=== PATIENT | female | born 1995 | race African-American/Black ===

== ENCOUNTER 2016-10-11 16:57 | Emergency (ER) | payer SELFPAY ==
[~2016-10-11] VITALS: Ht 160 cm; Wt 110.0 kg
[~2016-10-11 16:57] MED LIST: AZIT250T74 PO; CARDECDMS PO
[2016-10-11 17:00] VITALS: BP 168/105; PULSE 128; RESP 16; TEMP 98.1; O2SAT 100
[2016-10-11 17:16] VITALS: PULSE 114; RESP 18; O2SAT 99
--- NOTE | 2016-10-11 17:27 | PD ---
HPI Chief Complaint: Chest Pain Time Seen by Provider: 17:21 Travel History International Travel<30 days: No Contact w/Intl Traveler<30days: No Traveled to known affect area: No History of Present Illness HPI Patient is a 21-year-old female presents emergency Department with 2-3 day history of left-sided chest tightness now radiating down her left arm which is what caused her to come into the emergency department. Patient relates a history of her mother dying of congestive heart failure and she had CABG in her early 40s relates 30s. Patient's mother at 42. Patient states she does not currently have a primary care physician she just moved to town. Denies a history of hormone replacement denies a history of long stasis periods. Denies a history of high blood pressure high cholesterol. She does not smoke. She denies shortness of breath nausea vomiting abdominal pain swelling in her extremities. PFSH Past Medical History Cardiovascular Problems: Yes (htn hx of this but does not take meds for it) Diminished Hearing: No Respiratory: Yes (PNEUMONIA) Tetanus Vaccination: Unknown Influenza Vaccination: No ?: Not LMP: 09/13/16 Past Surgical History Cholecystectomy: Yes Social History Alcohol Use: No Tobacco Use: No Substance Use: No Allergies-Medications (Allergen,Severity, Reaction): Coded Allergies: No Known Allergies (Verified , 10/11/16) Reported Meds & Prescriptions Reported Meds & Active Scripts Active Review of Systems Except as stated in HPI: all other systems reviewed are Neg Physical Exam Narrative GENERAL: Well-developed, morbidly obese in no apparent distress. SKIN: Focused skin assessment warm/dry. HEAD: Atraumatic. Normocephalic. EYES: Pupils equal and round. No scleral icterus. No injection or drainage. ENT: No nasal bleeding or discharge. Mucous membranes pink and moist. NECK: Trachea midline. No JVD. CARDIOVASCULAR: Regular rhythm with tachycardia.. No murmur appreciated. 2+ bilateral equal pulses in all 4 extremities. No edema appreciated. RESPIRATORY: No accessory muscle use. Clear to auscultation. Breath sounds equal bilaterally. GASTROINTESTINAL: Abdomen soft, non-tender, nondistended. Hepatic and splenic margins not palpable. MUSCULOSKELETAL: No obvious deformities. No clubbing. No cyanosis. No edema. NEUROLOGICAL: Awake and alert. No obvious cranial nerve deficits. Motor grossly within normal limits. Normal speech. PSYCHIATRIC: Appropriate mood and affect; insight and judgment normal. Data Data Last Documented VS Vital Signs Date Time Temp Pulse Resp B/P Pulse Ox O2 Delivery O2 Flow Rate FiO2 10/11/16 19:30 90 18 143/87 100 Room Air 10/11/16 17:00 98.1 Orders Electrocardiogram (10/11/16 ) B-Type Natriuretic Peptide (10/11/16 17:21) Ckmb (Isoenzyme) Profile (10/11/16:21) Complete Blood Count With Diff (10/11/16:) Comprehensive Metabolic Panel (10/11/16:21) Magnesium (Mg) (10/11/16:21) Troponin I (10/11/16:21) Chest, Single Ap (10/11/16:21) Ecg Monitoring (10/11/16:21) Bilateral Bp Monitoring (10/11/16:21) Iv Access Insert/Monitor (10/11/16:21) Oximetry (10/11/16:21) Oxygen Administration (10/11/16:21) Aspirin Chew (Aspirin Chew) (10/11/16 17:30) Sodium Chloride 0.9% Flush (Ns Flush) (10/11/16 17:30) Sodium Chlor 0.9% 1000 Ml Inj (Ns 1000 M (10/11/16 17:30) Urinalysis - C+S If Indicated (10/11/16 17:53) Ed Urine Pregnancytest Poc (10/11/16 17:53) Labs Laboratory Tests Test 10/11/16 10/11/16 10/11/16 17:56 18:55 19:43 Urine Color YELLOW Urine Turbidity CLEAR Urine pH 6.5 Urine Specific [place] 1.034 Urine Protein NEG mg/dL Urine Glucose (UA) NEG mg/dL Urine Ketones TRACE mg/dL Urine Occult Blood NEG Urine Nitrite NEG Urine Bilirubin NEG Urine Leukocyte Esterase NEG Urine RBC 0-3 /hpf Urine WBC 0-2 /hpf Urine Squamous Epithelial > 8 /hpf Cells Urine Mucus MOD /lpf Microscopic Urinalysis Comment CULT NOT INDICATED White Blood Count 6.1 TH/MM3 Red Blood Count 4.84 MIL/MM3 Hemoglobin 12.8 GM/DL Hematocrit 37.6 % Mean Corpuscular Volume 77.8 FL Mean Corpuscular Hemoglobin 26.4 PG Mean Corpuscular Hemoglobin 33.9 % Concent Red Cell Distribution Width 13.5 % Platelet Count 210 TH/MM3 Mean Platelet Volume 10.0 FL Neutrophils (%) (Auto) 53.2 % Lymphocytes (%) (Auto) 32.6 % Monocytes (%) (Auto) 10.3 % Eosinophils (%) (Auto) 2.3 % Basophils (%) (Auto) 1.6 % Neutrophils # (Auto) 3.3 TH/MM3 Lymphocytes # (Auto) 2.0 TH/MM3 Monocytes # (Auto) 0.6 TH/MM3 Eosinophils # (Auto) 0.1 TH/MM3 Basophils # (Auto) 0.1 TH/MM3 CBC Comment DIFF FINAL Differential Comment B-Type Natriuretic Peptide 5 PG/ML Sodium Level 140 MEQ/L Potassium Level 4.5 MEQ/L Chloride Level 108 MEQ/L Carbon Dioxide Level 22.4 MEQ/L Anion Gap 10 MEQ/L Blood Urea Nitrogen 9 MG/DL Creatinine 0.50 MG/DL Estimat Glomerular Filtration 190 ML/MIN Rate Random Glucose 95 MG/DL Calcium Level 7.7 MG/DL Magnesium Level 1.9 MG/DL Total Bilirubin 0.2 MG/DL Aspartate Amino Transf 19 U/L (AST/SGOT) Alanine Aminotransferase 16 U/L (ALT/SGPT) Alkaline Phosphatase 62 U/L Total Creatine Kinase 70 U/L Troponin I LESS THAN 0.02 NG/ML Total Protein 7.2 GM/DL Albumin 3.0 GM/DL MDM Medical Decision Making Medical Screen Exam Complete: Yes Emergency Medical Condition: Yes Interpretation(s) EKG shows sinus tachycardia at a rate of 122, left axis deviation and normal R- wave progression. Q waves present in 3 and aVF undetermined significance. No previous for comparison. Differential Diagnosis ACS, PR, PE, costochondritis, chest wall pain. Narrative Course Patient was roomed emergency department, an IV was easily established in the left antecubital fossa. Unfortunately obtaining blood samples was very difficult to this patient. Ultimately the CMP troponin were within normal limits, CBC was negative. D-dimer and coagulations studies and clotted multiple times. This was discussed with the patient I recommended that she have a CT pulmonary angiogram initially she is accepting. At the time and that she was counseled the CT PE study I also discussed with her that given her mother's history she needs to consider having a stress test done and I did offer her admission to have it done. At her age she is unlikely but given her family history she is more likely than average 21-year-old. After discussion of the risks of missed critical stenotic lesion in and coronary vessel including and disability she verbalized understanding and stated that she would still prefer to go home after her CAT scan. While waiting for CAT scan the patient told the nurse that she had more questions for me. I entered the room again and the patient stated that she wanted to know if she could come back to do the CAT scan later because she has to work [employer] at [employer]. She has been here for 3-1/2 hours after multiple blood draws as her labs were hemolyzed and clotted multiple times. I discussed with her that missing a PE can have serious have burst health consequences including and disability and she verbalized understanding and still wished to be signed out AMA. Her heart rate had normalized after a liter of normal saline. She appears well in no apparent distress. She did sign a formal AMA paper. She was invited to return any time. I instructed the nurse to find her with her discharge paperwork and she was referred to a multi township assessor. Diagnosis Primary Impression: Chest pain Qualified Code: R07.9 - Chest pain, unspecified type Referrals: Jaclyn Harmon MD [facility] Disposition: 07 AGAINST MEDICAL ADVICE Condition: Bill Norton MD October 11, 2016 17:27
[2016-10-11] MEDS ORDERED: ASPIRIN 81 MG CHEW TAB PO ONE (17:30)
[2016-10-11] MEDS ORDERED: SODIUM CHLORIDE 0.9% FLUSH 10 ML FLUSH IVF PRN (17:30)
[2016-10-11] MEDS ORDERED: SODIUM CHLOR 0.9% 1000 ML INJ 1,000 ML IV ONE (17:30)
[2016-10-11 17:59] VITALS: O2SAT 98
[2016-10-11 18:10] LABS: BLOOD, URINE NEG (NEG); GLUCOSE,URINE NEG (NEG); KETONE, URINE TRACE mg/dL (NEG); NITRITE,URINE NEG (NEG); PH, URINE 6.5 (5.0-8.5)
[2016-10-11 18:16] LABS: URINE COLOR YELLOW (YELLW/STRAW)
[2016-10-11 18:17] VITALS: BP 154/75; PULSE 83; RESP 16; O2SAT 100
[2016-10-11 18:18] LABS: COMMENT (UR) CULT NOT INDICATED; CULTURE IF INDICATED CULT NOT INDICATED; MUCUS URINE MOD /lpf (OCC); RBC, URINE 0-3 /hpf (0-3); SQUAMOUS EPITHELIAL CELL URINE > 8 /hpf (0-5); WBC, URINE 0-2 /hpf (0-5)
--- NOTE | 2016-10-11 18:29 | RADHPO ---
EXAM DATE/TIME: 10/11/2016 18:02 [place] COMPARISON: No previous studies available for comparison. INDICATIONS : Chest pain for 3 days MEDICAL HISTORY : None. SURGICAL HISTORY : None. ENCOUNTER: Initial ACUITY: 3 days PAIN SCORE: 7/10 LOCATION: Left chest FINDINGS: A single view of the chest demonstrates the lungs to be symmetrically aerated without evidence of mas s, infiltrate or effusion. The cardiomediastinal contours are unremarkable. Osseous structures are intact. CONCLUSION: No acute disease. John Hurt MD on October 11, 2016 at 18:27 Board Certified Radiologist. This report was verified electronically.
[2016-10-11 19:06] LABS: AUTOMATED NEUTROPHIL # 3.3 TH/MM3 (1.8-7.7); BASOPHIL # 0.1 TH/MM3 (0-0.2); BASOPHIL % 1.6 % (0.0-2.0); EOSINOPHIL # 0.1 TH/MM3 (0-0.4); EOSINOPHIL % 2.3 % (0.0-4.0); HEMATOCRIT 37.6 % (35.0-46.0); HEMO FLAGS DIFF FINAL; LYMPH % 32.6 % (9.0-44.0); MEAN CELL VOLUME 77.8 FL (80.0-100.0); MEAN CORPUSCULAR HEMOGLOBIN 26.4 PG (27.0-34.0); MEAN CORPUSCULAR HGB CONC 33.9 % (32.0-36.0); MONO % 10.3 % (0.0-8.0); NEUT % 53.2 % (16.0-70.0); PLATELET COUNT 210 TH/MM3 (150-450); RED BLOOD COUNT 4.84 MIL/MM3 (4.00-5.30); RED CELL DISTRIBUTION WIDTH 13.5 % (11.6-17.2); WHITE BLOOD COUNT 6.1 TH/MM3 (4.0-11.0)
[2016-10-11 19:30] VITALS: BP 143/87; PULSE 90; RESP 18; O2SAT 100
[2016-10-11 20:01] LABS: CHLORIDE 108 MEQ/L (98-107); SODIUM (NA) 140 MEQ/L (136-145)
[2016-10-11 20:07] LABS: ANION GAP 10 MEQ/L (5-15); BICARBONATE 22.4 MEQ/L (21.0-32.0); BLOOD UREA NITROGEN 9 MG/DL (7-18); MAGNESIUM 1.9 MG/DL (1.5-2.5)
[2016-10-11 20:09] LABS: ALT (GPT) 16 U/L (9-42); AST (GOT) 19 U/L (16-38); GLOMERULAR FILTRATION RATE 190 ML/MIN (>89)
[2016-10-11 20:10] LABS: TOTAL BILIRUBIN ADULT 0.2 MG/DL (0.2-1.0)
[2016-10-11 20:11] LABS: ALKALINE PHOSPHATASE 62 U/L (45-117)
[2016-10-11 20:18] LABS: CREATINE KINASE 70 U/L (26-192); POTASSIUM 4.5 MEQ/L (3.5-5.1)
[2016-10-12] VITALS (10 sets, daily range): BP systolic 100–118; BP diastolic 67–77; PULSE 52–70; RESP 14–18; O2SAT 100
--- NOTE | 2016-10-12 16:17 | EKG ---
Date Performed: 10/11/2016 Time Performed: 17:07:32 PTAGE: 21 years EKG: Sinus tachycardia Leftward axis QRS changes in V2 may be due to LVH but cannot rule out sep aravind infarct Inferior T wave changes may be normal for age Also consider anteroseptal [place], age indeterm inate Abnormal ECG NO PREVIOUS TRACING DOCTOR: John Petty Interpretating Date/Time 10/12/2016 16:15:49
[2016-10-13 00:30] VITALS: BP 106/73; PULSE 52; RESP 16
[2016-10-13 01:30] VITALS: BP 104/69; PULSE 56; RESP 16
[2016-10-13 02:30] VITALS: BP 105/68; PULSE 52; RESP 14
== END 2016-10-11 21:36 | disposition left against medical advice (07) ==
LOC: PHED 16:57
DX: R07.89 Other chest pain (principal); R00.0 Tachycardia, unspecified; E66.01 Morbid (severe) obesity due to excess calories
CPT/HCPCS: 71010; 80053; 81001; 82550; 83735; 83880; 84484; 84703; 85025; 93005; 96360; 99285; J7030

== ENCOUNTER 2017-07-15 07:04 | Emergency (ER) | payer SELFPAY ==
[~2017-07-15] VITALS: Ht 160 cm; Wt 109.0 kg
[2017-07-15 07:08] VITALS: BP 188/97; PULSE 69; RESP 16; TEMP 98.2; O2SAT 100
[2017-07-15] MEDS ORDERED: LEVS0.123 PO (07:36)
[2017-07-15] MEDS ORDERED: ZOFR4TAB PO (07:36)
--- NOTE | 2017-07-15 07:38 | PD ---
HPI Chief Complaint: GI Complaint Time Seen by Provider: 07:32 Travel History International Travel<30 days: No Contact w/Intl Traveler<30days: No Traveled to known affect area: No History of Present Illness HPI Patient presents with complaints of nausea and abdominal cramping and loose stools for 2 days. Denies any blood per stool. Denies any uncontrolled vomiting. Denies . Denies fever. Denies any recent antibiotics, camping, travel or unusual foods. Denies any sick contacts. Requesting work note. PFSH Past Medical History Cardiovascular Problems: Yes (htn hx of this but does not take meds for it) Diminished Hearing: No Respiratory: Yes (PNEUMONIA) Immunizations Current: Yes Tetanus Vaccination: > 5 Years Influenza Vaccination: No ?: Not LMP: LAST WEEK Past Surgical History Cholecystectomy: Yes Social History Alcohol Use: No Tobacco Use: No Substance Use: No Allergies-Medications (Allergen,Severity, Reaction): Coded Allergies: No Known Allergies (Verified Adverse Reaction, Unknown, 07/15/17) Reported Meds & Prescriptions Reported Meds & Active Scripts Active No Active Prescriptions or Reported Medications Review of Systems General / Constitutional: No: Fever Eyes: No: Visual changes HENT: No: Headaches Cardiovascular: No: Chest Pain or Discomfort Respiratory: No: Shortness of Breath Gastrointestinal: Positive: Nausea, Vomiting, Diarrhea, No: Abdominal Pain Genitourinary: No: Dysuria Musculoskeletal: No: Pain Skin: No Rash Neurologic: No: Weakness Psychiatric: No: Depression Endocrine: No: Polydipsia Hematologic/Lymphatic: No: Easy Bruising Physical Exam Narrative GENERAL: Well-nourished, well-developed patient. SKIN: Focused skin assessment warm/dry. HEAD: Normocephalic. EYES: No scleral icterus. No injection or drainage. NECK: Supple, trachea midline. No JVD or lymphadenopathy. CARDIOVASCULAR: Regular rate and rhythm without murmurs, gallops, or rubs. RESPIRATORY: Breath sounds equal bilaterally. No accessory muscle use. GASTROINTESTINAL: Abdomen soft, non-tender, nondistended. MUSCULOSKELETAL: No cyanosis, or edema. BACK: Nontender without obvious deformity. No CVA tenderness. Data Data Last Documented VS Vital Signs Date Time Temp Pulse Resp B/P (MAP) Pulse Ox O2 Delivery O2 Flow Rate FiO2 07/15/17 07:08 98.2 69 16 188/97 (127) 100 Orders Orders Urinalysis - C+S If Indicated (07/15/17 07:13) Ed Urine Pregnancytest Poc (07/15/17 07:13) Ondansetron Odt (Zofran Odt) (07/15/17 07:45) Dicyclomine Inj (Bentyl Inj) (07/15/17 07:45) MDM Medical Decision Making Medical Screen Exam Complete: Yes Emergency Medical Condition: Yes Differential Diagnosis Gastroenteritis, colitis, malingering Narrative Course Assessment and plan discussed with patient at bedside. Tolerated fluid challenge. Diagnosis Primary Impression: Gastroenteritis Patient Instructions: General Instructions Additional Instructions: Encouraged a bland brat diet. Encouraged good fluid intake. Please provide work note. Return to the ER with any onset of new symptoms. Follow-up with PCP. Med/Other Pt SpecificInfo: Prescription(s) given Scripts Hyoscyamine (Levsin) 0.125 Mg Tab 0.125 MG PO Q6H for Gastrointestinal disorders, #20 TAB 0 Refills Prov: Venkata Grewal MD 07/15/17 Ondansetron (Zofran) 4 Mg Tab 4 MG PO Q6HR Y for NAUSEA OR VOMITING, #20 TAB 0 Refills Prov: Venkata Grewal MD 07/15/17 Disposition: 01 DISCHARGE HOME Condition: Good Venkata Grewal MD Jul 15, 2017 07:38
[2017-07-15 07:39] LABS: BILIRUBIN, URINE NEG (NEG); BLOOD, URINE NEG (NEG); GLUCOSE,URINE NEG (NEG); KETONE, URINE NEG (NEG); NITRITE,URINE NEG (NEG); PH, URINE 6.5 (5.0-8.5); URINE LEUKOCYTE ESTERASE NEG (NEG)
[2017-07-15 07:40] VITALS: BP 144/95; PULSE 76; RESP 16; O2SAT 100
[2017-07-15] MEDS ORDERED: DICYCLOMINE HCL 20 MG/2 ML VIAL IM ONE (07:45)
[2017-07-15] MEDS ORDERED: ONDANSETRON ODT 4 MG TAB PO ONE (07:45)
[2017-07-15 07:51] LABS: URINE COLOR YELLOW (YELLW/STRAW)
[2017-07-15 07:52] LABS: AMORPHOUS SEDIMENT, URINE LARGE; MUCUS URINE MANY /lpf (OCC)
== END 2017-07-15 07:53 | disposition home or self-care (01) ==
LOC: PHED 07:04
DX: K52.9 Noninfective gastroenteritis and colitis, unspecified (principal); R11.0 Nausea
CPT/HCPCS: 81001; 84703; 96372; 99283; J0500